=== PATIENT | male | born 1955 | race Hispanic/Latino ===

== ENCOUNTER 2021-03-22 09:25 | Inpatient (IN) | payer BC, MEDICARE ==
[2021-03-20 11:52] LABS: BASOPHILS % (AUTO) 0.8 % (0.0-5.0); EOSINOPHILS % (AUTO) 4.9 % (0.0-8.0); HEMATOCRIT 41.9 % (42-54); LYMPHOCYTES % (AUTO) 19.9 % (21.0-51.0); MEAN CORPUSCULAR HEMOGLOBIN 31.6 pg (27.0-33.0); MEAN CORPUSCULAR HGB CONC 32.7 g/dL (32.0-36.0); MEAN CORPUSCULAR VOLUME 96.8 fL (79-99); NEUTROPHILS % (AUTO) 64.8 % (40.0-77.0); PLATELET COUNT (AUTO) 225 K/uL (130-400); RED BLOOD CELL COUNT(AUTO) 4.33 MIL/uL (4.50-6.20); RED CELL DISTRIBUTION WIDTH 13.7 % (11.0-15.5); WHITE BLOOD COUNT (AUTO) 7.8 K/uL (4.8-10.8)
[2021-03-20 12:04] LABS: INR 0.99 (0.85-1.15); PROTHROMBIN TIME 10.8 SEC (9.6-11.6)
[2021-03-20 12:06] LABS: PARTIAL THROMBOPLASTIN TIME 26.2 SEC (26.3-35.5)
[2021-03-20 12:08] LABS: ALBUMIN 3.4 g/dL (3.5-5.0); BILIRUBIN,TOTAL 0.3 mg/dL (0.2-1.0); CREATININE 0.9 mg/dL (0.5-1.5); POTASSIUM 3.6 mmol/L (3.5-5.1); TOTAL PROTEIN, SERUM 8.3 g/dL (6.0-8.3)
[2021-03-20 12:15] LABS: ABG BASE EXCESS 2.3 mmol/L (-2.0-3.0); ABG HCO3 27.1 mmol/L (21.0-28.0); ABG OXYGEN SATURATION 94.6 % (95.0-99.0); ABG PCO2 43 mmHg (35-48)
[2021-03-20 12:17] LABS: HEMOGLOBIN A1C 6.3 % (4.0-6.0)
[2021-03-21 11:36] VITALS: BP 144/76
[~2021-03-22] VITALS: Ht 162.6 cm; Wt 87.9 kg
[~2021-03-22 09:25] MED LIST: ATOR10 PO; CEFAZOLIN SODIUM 1 GM VIAL IVP SCH; DUTA0.5C37 PO; TAMS-1 PO
[2021-03-24] VITALS (18 sets, daily range): BP systolic 95–152; BP diastolic 42–83
[2021-03-24] MEDS ORDERED: METOPROLOL TARTRATE 25 MG TAB ONE (11:25)
[2021-03-24] MEDS ORDERED: 0.9%NACL 1000ML 1,000 ML IV ONE (11:39)
[2021-03-24] MEDS ORDERED: AMINOCAPROIC ACID 5,000MG VIAL 15,000 MG in 0.9% NACL 500ML IV.SOLN 420 ML IV PRN (12:00)
[2021-03-24] MEDS ORDERED: EPINEPHRINE PF 1MG AMP 10 MG in 0.9% NACL 250ML 240 ML IV PRN (12:00)
[2021-03-24] MEDS ORDERED: NOREPINEPHRINE BITARTRATE 8 MG in DEXTROSE 5%-WATER 250 ML IV PRN (12:00)
[2021-03-24] MEDS ORDERED: METOPROLOL TARTRATE 25 MG TAB PO SCH (12:00)
[2021-03-24] MEDS: CEFAZOLIN SODIUM 1 GM VIAL IVP SCH ×2 (12:01→13:00)
[2021-03-24] MEDS ORDERED: ESMOLOL HCL 10 MG/ML 10 ML VIAL ONE (12:06)
[2021-03-24] MEDS ORDERED: EPINEPHRINE PF 1MG AMP ONE (12:06)
[2021-03-24] MEDS ORDERED: SODIUM BICARB 50MEQ 50ML VIAL 100 ML ONE (12:06)
[2021-03-24] MEDS ORDERED: PROTAMINE SULFATE 10 MG/ML 25ML VIAL IV ONE (12:06)
[2021-03-24] MEDS ORDERED: LIDOCAINE PF 100MG/5ML (2%) SYRINGE 5ML ONE (12:06)
[2021-03-24] MEDS ORDERED: HEPARIN 10,000 UNIT/10ML (1,000 UNIT/ML) VIAL ONE ×2 (12:06→13:14)
[2021-03-24] MEDS ORDERED: AMINOCAPROIC ACID 5,000MG VIAL ONE (12:06)
[2021-03-24] MEDS ORDERED: FENTANYL CITRATE PF 50 MCG/1 ML 20ML VIAL IJ ONE (12:06)
[2021-03-24] MEDS ORDERED: NOREPINEPHRINE BITARTRATE 1 MG/1 ML ML IV ONE (12:06)
[2021-03-24] MEDS ORDERED: ROCURONIUM 10MG/1ML SYR 10 MG/ML ML ONE (12:07)
[2021-03-24] MEDS ORDERED: PROPOFOL 10 MG/ML 20ML VIAL IV ONE (12:07)
[2021-03-24] MEDS ORDERED: MIDAZOLAM HCL 1 MG/ML 2ML VIAL ONE ×2 (12:07→12:10)
[2021-03-24] MEDS ORDERED: NITROGLYCERIN 50MG/D5W 250ML 1 BOT ONE (12:19)
[2021-03-24] MEDS ORDERED: KETAMINE HCL 100 MG/ML 5ML VIAL IJ ONE (12:57)
[2021-03-24] MEDS ORDERED: OCTYL 2-CYANOACRYLATE 1 EACH TP ONE (13:39)
[2021-03-24] MEDS ORDERED: PAPAVERINE HCL 30 MG/ML 2ML VIAL ONE (13:39)
[2021-03-24] MEDS ORDERED: CEFAZOLIN SODIUM 1 GM VIAL ONE (13:39)
[2021-03-24 13:43] LABS: ABG BASE EXCESS -1.8 mmol/L (-2.0-3.0); ABG OXYGEN SATURATION 99.6 % (95.0-99.0); ABG PCO2 34 mmHg (35-48)
[2021-03-24] MEDS ORDERED: SODIUM BICARB 50MEQ 50ML VIAL 200 ML ONE (13:47)
[2021-03-24] MEDS ORDERED: SOLU-MEDROL 125MG VIAL ONE (15:36)
[2021-03-24] MEDS ORDERED: ROCURONIUM BROMIDE 10MG/1ML 5ML VL ONE (15:39)
[2021-03-24 15:56] LABS: ABG BASE EXCESS -2.8 mmol/L (-2.0-3.0); ABG HCO3 21.3 mmol/L (21.0-28.0); ABG OXYGEN SATURATION 99.4 % (95.0-99.0); ABG PCO2 35 mmHg (35-48)
[2021-03-24] MEDS ORDERED: POTASSIUM CHLORIDE 20MEQ/100ML 100 ML IV ONE (16:05)
[2021-03-24] MEDS ORDERED: ALBUMIN (HUMAN) 5% 250 ML IV ONE ×2 (16:23→16:37)
[2021-03-24] MEDS ORDERED: GLUCAGON 1MG KIT 1 MG ML IM PRN (16:30)
[2021-03-24] MEDS ORDERED: 0.9%NACL 10ML VIAL IVP PRN (16:30)
[2021-03-24] MEDS ORDERED: ACETAMINOPHEN 325 MG TAB PO PRN (16:30)
[2021-03-24] MEDS ORDERED: EPINEPHRINE PF 1MG AMP 10 MG in DEXTROSE 5%-WATER 250 ML IV PRN (16:30)
[2021-03-24] MEDS ORDERED: 0.9%NACL 1000ML 1,000 ML IV SCH (16:30)
[2021-03-24] MEDS ORDERED: MORPHINE 2 MG SYG IV PRN ×2 (16:30→17:30)
[2021-03-24] MEDS ORDERED: INSULIN REGULAR, HUMAN 3ML 100 UNIT in 0.9%NACL 100ML 99 ML IV SCH ×2 (16:30)
[2021-03-24] MEDS ORDERED: NITROGLYCERIN 50MG/D5W 250ML 250 BOT IV SCH (16:30)
[2021-03-24] MEDS ORDERED: ALBUMIN (HUMAN) 5% 250 ML IV PRN (16:30)
[2021-03-24] MEDS ORDERED: DEXTROSE 50%-WATER 50 ML DISP.SYRIN IV PRN (16:30)
[2021-03-24] MEDS ORDERED: TRAMADOL HCL 50 MG TABLET PO PRN ×2 (16:30)
[2021-03-24] MEDS ORDERED: ACETAMINOPHEN 650 MG SUPPOSITORY RC PRN (16:30)
[2021-03-24] MEDS ORDERED: POTASSIUM PHOS 15 mMOL+NS250ML IV PRN (16:30)
[2021-03-24] MEDS ORDERED: AMINOCAPROIC ACID 5,000MG VIAL 15,000 MG in 0.9% NACL 250ML 250 ML IV SCH (16:30)
[2021-03-24] MEDS ORDERED: CALCIUM GLUC 1GM 1 GM in 0.9%NACL 50ML 50 ML IV PRN (16:30)
[2021-03-24] MEDS ORDERED: MAGNESIUM 2GM PREMIX 50ML 50 ML IV PRN (16:30)
[2021-03-24] MEDS ORDERED: PROPOFOL 1000 MG/100 ML 100 ML IV PRN (16:30)
[2021-03-24] MEDS ORDERED: NOREPINEPHRIN 4MG/NS 250ML 250 ML IV PRN (16:30)
[2021-03-24] MEDS ORDERED: ONDANSETRON 4MG INJ IV PRN (16:30)
[2021-03-24 16:33] LABS: ABG BASE EXCESS -6.7 mmol/L (-2.0-3.0); ABG HCO3 19.3 mmol/L (21.0-28.0); ABG OXYGEN SATURATION 93.6 % (95.0-99.0); ABG PCO2 40 mmHg (35-48)
[2021-03-24] MEDS ORDERED: SODIUM BICARB 50MEQ 50ML VIAL 50 ML ONE (16:37)
[2021-03-24] MEDS ORDERED: EPHEDRINE SULFATE 50 MG/ML AMPULE ONE (16:55)
[2021-03-24] MEDS ORDERED: ASPIRIN 81MG CHEW TAB NG ONE (17:00)
[2021-03-24 17:26] LABS: ABG BASE EXCESS -1.7 mmol/L (-2.0-3.0); ABG HCO3 23.4 mmol/L (21.0-28.0); ABG OXYGEN SATURATION 89.9 % (95.0-99.0); ABG PCO2 41 mmHg (35-48)
[2021-03-24 17:39] LABS: ABG OXYGEN SATURATION 71.9 % (95.0-99.0); BASE EXCESS,VENOUS BLOOD GAS -2.7 (-2.0-3.0); HCO3,VENOUS BLOOD GAS 23.8 (21.0-28.0); PCO2,VENOUS BLOOD GAS 48 (35-48); PH,VENOUS BLOOD GAS 7.309 (7.350-7.450)
[2021-03-24 17:39] LABS: HEMATOCRIT 31.8 % (42-54); MEAN CORPUSCULAR HEMOGLOBIN 31.9 pg (27.0-33.0); MEAN CORPUSCULAR HGB CONC 33.3 g/dL (32.0-36.0); MEAN CORPUSCULAR VOLUME 95.8 fL (79-99); RED BLOOD CELL COUNT(AUTO) 3.32 MIL/uL (4.50-6.20); RED CELL DISTRIBUTION WIDTH 13.6 % (11.0-15.5); WHITE BLOOD COUNT (AUTO) 21.1 K/uL (4.8-10.8)
[2021-03-24 17:51] LABS: INR 1.19 (0.85-1.15); PROTHROMBIN TIME 12.8 SEC (9.6-11.6)
[2021-03-24] MEDS: POTASSIUM CHLORIDE 20MEQ/100ML 100 ML IV PRN ×4 (17:51→22:25)
[2021-03-24] MEDS: SODIUM BICARB 50MEQ 50ML VIAL IV PRN ×3 (17:51→20:08)
[2021-03-24 17:52] LABS: CREATININE 1.2 mg/dL (0.5-1.5); MAGNESIUM 1.5 mg/dL (1.80-2.40); PARTIAL THROMBOPLASTIN TIME 21.9 SEC (26.3-35.5); PHOSPHORUS 2.3 mg/dL (2.5-4.9)
[2021-03-24] MEDS: 0.9%NACL 50ML IV SCH ×3 (17:52→22:24)
[2021-03-24] MEDS: CALCIUM GLUC 1GM/10ML VIAL IVPB SCH ×3 (17:52→22:24)
[2021-03-24 18:08] LABS: POTASSIUM 2.5 mmol/L (3.5-5.1)
[2021-03-24 18:44] LABS: ABG OXYGEN SATURATION 99.1 % (95.0-99.0); ABG PCO2 41 mmHg (35-48)
[2021-03-24 19:57] LABS: ABG BASE EXCESS -1.7 mmol/L (-2.0-3.0); ABG HCO3 23.2 mmol/L (21.0-28.0); ABG OXYGEN SATURATION 98.8 % (95.0-99.0); ABG PCO2 40 mmHg (35-48)
[2021-03-24] MEDS: FAMOTIDINE 20MG VIAL IV SCH (20:08)
[2021-03-24] MEDS: (Dutasteride 0.5 MG) PO SCH (20:11)
[2021-03-24] MEDS: TAMSULOSIN HCL 0.4 MG CAP.ER.24H PO SCH (20:11)
[2021-03-24] MEDS: CEFAZOLIN SODIUM 1 GM VIAL IV SCH (20:36)
[2021-03-24 20:49] LABS: ABG BASE EXCESS 0.8 mmol/L (-2.0-3.0); ABG HCO3 25.7 mmol/L (21.0-28.0); ABG OXYGEN SATURATION 98.3 % (95.0-99.0); ABG PCO2 42 mmHg (35-48)
[2021-03-24] MEDS ORDERED: ATORVASTATIN 20 MG TABLET PO SCH (21:00)
[2021-03-24 22:05] LABS: ABG BASE EXCESS -0.2 mmol/L (-2.0-3.0); ABG OXYGEN SATURATION 98.6 % (95.0-99.0); ABG PCO2 38 mmHg (35-48)
[2021-03-24] MEDS: NOREPINEPHRIN 8MG/250ML NS PMX 250 ML IV PRN (22:59)
[2021-03-24 23:05] LABS: ABG BASE EXCESS -1.3 mmol/L (-2.0-3.0); ABG OXYGEN SATURATION 98.2 % (95.0-99.0); ABG PCO2 37 mmHg (35-48)
[2021-03-25] VITALS (25 sets, daily range): BP systolic 23–133; BP diastolic 50–79
[2021-03-25 00:11] LABS: ABG BASE EXCESS -1.6 mmol/L (-2.0-3.0); ABG HCO3 22.5 mmol/L (21.0-28.0); ABG OXYGEN SATURATION 97.9 % (95.0-99.0); ABG PCO2 36 mmHg (35-48)
[2021-03-25] MEDS: CALCIUM GLUC 1GM/10ML VIAL IVPB SCH ×4 (00:30→19:57)
[2021-03-25] MEDS: 0.9%NACL 50ML IV SCH ×2 (00:30→03:14)
[2021-03-25 02:40] LABS: ABG BASE EXCESS -1.5 mmol/L (-2.0-3.0); ABG HCO3 22.9 mmol/L (21.0-28.0); ABG OXYGEN SATURATION 95.7 % (95.0-99.0); ABG PCO2 38 mmHg (35-48)
[2021-03-25] MEDS: SODIUM BICARB 50MEQ 50ML VIAL IV PRN (03:14)
[2021-03-25 04:07] LABS: ABG HCO3 25.8 mmol/L (21.0-28.0); ABG OXYGEN SATURATION 94.2 % (95.0-99.0); ABG PCO2 38 mmHg (35-48)
[2021-03-25 04:32] LABS: HEMATOCRIT 32.9 % (42-54); MEAN CORPUSCULAR HEMOGLOBIN 31.4 pg (27.0-33.0); MEAN CORPUSCULAR HGB CONC 33.7 g/dL (32.0-36.0); MEAN CORPUSCULAR VOLUME 93.2 fL (79-99); RED BLOOD CELL COUNT(AUTO) 3.53 MIL/uL (4.50-6.20); WHITE BLOOD COUNT (AUTO) 15.6 K/uL (4.8-10.8)
[2021-03-25] MEDS: CEFAZOLIN SODIUM 1 GM VIAL IV SCH ×2 (04:41→13:53)
[2021-03-25 04:43] LABS: INR 1.04 (0.85-1.15); PROTHROMBIN TIME 11.3 SEC (9.6-11.6)
[2021-03-25 04:44] LABS: PHOSPHORUS 4.6 mg/dL (2.5-4.9); POTASSIUM 4.4 mmol/L (3.5-5.1)
[2021-03-25 04:45] LABS: PARTIAL THROMBOPLASTIN TIME 23.9 SEC (26.3-35.5)
[2021-03-25] MEDS ORDERED: 0.9%NACL 100ML 100 ML ONE (08:06)
[2021-03-25] MEDS: FAMOTIDINE 20MG VIAL IV SCH ×2 (08:12→20:39)
[2021-03-25] MEDS: ASPIRIN 81 MG EC TAB PO SCH (08:12)
[2021-03-25] MEDS ORDERED: HYDROCODONE/ACETAMINOPHEN 5/325 MG TAB PO PRN (09:30)
[2021-03-25] MEDS: HYDROCODONE/ACETAMINOPHEN 5/325 MG TAB PO PRN ×4 (09:48→22:28)
[2021-03-25] MEDS ORDERED: IPRATROPIUM 0.5 MG/2.5 ML INH IH ONE ×2 (18:44→19:55)
[2021-03-25 19:25] LABS: ABG BASE EXCESS 1.1 mmol/L (-2.0-3.0); ABG OXYGEN SATURATION 85.9 % (95.0-99.0); ABG PCO2 37 mmHg (35-48)
[2021-03-25] MEDS: NOREPINEPHRIN 8MG/250ML NS PMX 250 ML IV PRN (19:25)
[2021-03-25] MEDS ORDERED: ALBUMIN (HUMAN) 5% 250 ML IV ONE (19:29)
[2021-03-25] MEDS ORDERED: PHARMACY COMMUNICATION MISC SCH (19:30)
[2021-03-25] MEDS ORDERED: 0.9%NACL 100ML 200 ML ONE (19:54)
[2021-03-25] MEDS: ATORVASTATIN 40 MG TABLET PO SCH (20:39)
[2021-03-25] MEDS: (Dutasteride 0.5 MG) PO SCH (20:39)
[2021-03-25] MEDS: TAMSULOSIN HCL 0.4 MG CAP.ER.24H PO SCH (20:39)
[2021-03-25] MEDS: 0.9% NACL 500ML IV.SOLN 500 ML IV SCH (21:15)
[2021-03-26] VITALS (26 sets, daily range): BP systolic 87–139; BP diastolic 48–105
[2021-03-26 04:44] LABS: HEMATOCRIT 31.9 % (42-54); MEAN CORPUSCULAR HEMOGLOBIN 31.7 pg (27.0-33.0); MEAN CORPUSCULAR HGB CONC 32.6 g/dL (32.0-36.0); MEAN CORPUSCULAR VOLUME 97.3 fL (79-99); RED BLOOD CELL COUNT(AUTO) 3.28 MIL/uL (4.50-6.20); RED CELL DISTRIBUTION WIDTH 14.2 % (11.0-15.5); WHITE BLOOD COUNT (AUTO) 13.6 K/uL (4.8-10.8)
[2021-03-26] MEDS: CALCIUM GLUC 1GM/10ML VIAL IVPB SCH (04:54)
[2021-03-26 04:59] LABS: POTASSIUM 4.4 mmol/L (3.5-5.1)
[2021-03-26 08:37] LABS: ABG BASE EXCESS -0.1 mmol/L (-2.0-3.0); ABG OXYGEN SATURATION 95.7 % (95.0-99.0); ABG PCO2 32 mmHg (35-48)
[2021-03-26] MEDS: ASPIRIN 81 MG EC TAB PO SCH (08:58)
[2021-03-26] MEDS ORDERED: AMIODARONE 900MG VIAL 360 MG in DEXTROSE 5%-WATER 200 ML IV SCH (09:30)
[2021-03-26] MEDS ORDERED: AMIODARONE 900MG VIAL 150 MG in DEXTROSE 5%-WATER 100 ML IV SCH (09:30)
[2021-03-26] MEDS: FAMOTIDINE 20MG VIAL IV SCH ×2 (09:32→19:39)
[2021-03-26] MEDS: FUROSEMIDE 20MG VIAL IV SCH ×2 (09:50→19:39)
[2021-03-26] MEDS: 0.9% NACL 500ML IV.SOLN 500 ML IV SCH (15:19)
[2021-03-26] MEDS: AMIODARONE 900MG VIAL 540 MG in DEXTROSE 5%-WATER 300 ML IV SCH (16:01)
[2021-03-26] MEDS: HYDROCODONE/ACETAMINOPHEN 5/325 MG TAB PO PRN (19:09)
[2021-03-26] MEDS: TAMSULOSIN HCL 0.4 MG CAP.ER.24H PO SCH (19:39)
[2021-03-26] MEDS: ATORVASTATIN 40 MG TABLET PO SCH (19:39)
[2021-03-26] MEDS: (Dutasteride 0.5 MG) PO SCH (19:39)
[2021-03-26] MEDS: ENOXAPARIN SODIUM 30 MG/0.3 ML SQ SCH (20:14)
[2021-03-26] MEDS ORDERED: IPRATROPIUM 0.5 MG/2.5 ML INH IH ONE (22:45)
[2021-03-26] MEDS: IPRATROPIUM 0.5 MG/2.5 ML INH IH SCH (23:09)
[2021-03-27] VITALS (27 sets, daily range): BP systolic 89–144; BP diastolic 54–99
[2021-03-27] MEDS: AMIODARONE 900MG VIAL 540 MG in DEXTROSE 5%-WATER 300 ML IV SCH ×2 (04:07→09:52)
[2021-03-27 04:21] LABS: ABG BASE EXCESS -0.3 mmol/L (-2.0-3.0); ABG HCO3 23.5 mmol/L (21.0-28.0); ABG OXYGEN SATURATION 96.3 % (95.0-99.0); ABG PCO2 35 mmHg (35-48)
[2021-03-27] MEDS ORDERED: 0.9%NACL 100ML 100 ML ONE (04:25)
[2021-03-27] MEDS ORDERED: PHARMACY COMMUNICATION MISC SCH (04:30)
[2021-03-27 04:36] LABS: HEMATOCRIT 32.1 % (42-54); MEAN CORPUSCULAR HEMOGLOBIN 31.7 pg (27.0-33.0); MEAN CORPUSCULAR HGB CONC 33.3 g/dL (32.0-36.0); RED BLOOD CELL COUNT(AUTO) 3.38 MIL/uL (4.50-6.20); RED CELL DISTRIBUTION WIDTH 14.3 % (11.0-15.5); WHITE BLOOD COUNT (AUTO) 14.5 K/uL (4.8-10.8)
[2021-03-27 04:53] LABS: CREATININE 1.1 mg/dL (0.5-1.5); MAGNESIUM 2.3 mg/dL (1.80-2.40); POTASSIUM 3.9 mmol/L (3.5-5.1)
[2021-03-27] MEDS: CALCIUM GLUC 1GM/10ML VIAL IVPB SCH (05:11)
[2021-03-27] MEDS: 0.9%NACL 50ML IV SCH (05:12)
[2021-03-27] MEDS: IPRATROPIUM 0.5 MG/2.5 ML INH IH SCH ×4 (06:15→23:18)
[2021-03-27] MEDS: FUROSEMIDE 20MG VIAL IV SCH ×2 (08:40→21:31)
[2021-03-27] MEDS: FAMOTIDINE 20MG VIAL IV SCH ×2 (08:43→20:49)
[2021-03-27] MEDS: ASPIRIN 81 MG EC TAB PO SCH (08:46)
[2021-03-27] MEDS: ENOXAPARIN SODIUM 30 MG/0.3 ML SQ SCH (08:47)
[2021-03-27] MEDS: POTASSIUM CHLORIDE 20MEQ/100ML 100 ML IV PRN (16:27)
[2021-03-27] MEDS ORDERED: LACTULOSE 20 GM/30 ML UDCUP PO PRN (18:30)
[2021-03-27] MEDS ORDERED: DOCUSATE SODIUM 100 MG CAP PO PRN (18:30)
[2021-03-27] MEDS ORDERED: SENNOSIDES 8.6 MG TABLET PO PRN (18:30)
[2021-03-27] MEDS ORDERED: AMIODARONE 900MG VIAL 450 MG in DEXTROSE 5%-WATER 250 ML IV SCH (20:30)
[2021-03-27] MEDS: ATORVASTATIN 40 MG TABLET PO SCH (20:49)
[2021-03-27] MEDS: (Dutasteride 0.5 MG) PO SCH (20:49)
[2021-03-27] MEDS: TAMSULOSIN HCL 0.4 MG CAP.ER.24H PO SCH (20:49)
[2021-03-27] MEDS: METOPROLOL TARTRATE 25 MG TAB PO SCH (20:49)
[2021-03-28] VITALS (20 sets, daily range): BP systolic 87–134; BP diastolic 57–86
[2021-03-28 04:58] LABS: HEMATOCRIT 31.1 % (42-54); MEAN CORPUSCULAR HEMOGLOBIN 31.6 pg (27.0-33.0); MEAN CORPUSCULAR HGB CONC 33.4 g/dL (32.0-36.0); MEAN CORPUSCULAR VOLUME 94.5 fL (79-99); RED BLOOD CELL COUNT(AUTO) 3.29 MIL/uL (4.50-6.20); RED CELL DISTRIBUTION WIDTH 14.3 % (11.0-15.5); WHITE BLOOD COUNT (AUTO) 11.3 K/uL (4.8-10.8)
[2021-03-28 05:07] LABS: CREATININE 0.9 mg/dL (0.5-1.5); MAGNESIUM 2.2 mg/dL (1.80-2.40); POTASSIUM 3.6 mmol/L (3.5-5.1)
[2021-03-28] MEDS ORDERED: POTASSIUM CHLORIDE 10% ELIXIR 20 MEQ/15 ML UDCUP ONE (06:12)
[2021-03-28] MEDS: IPRATROPIUM 0.5 MG/2.5 ML INH IH SCH ×4 (07:21→23:26)
[2021-03-28] MEDS: AMIODARONE 200 MG TABLET PO SCH ×2 (08:03→21:23)
[2021-03-28] MEDS: FAMOTIDINE 20MG VIAL IV SCH (08:03)
[2021-03-28] MEDS: POTASSIUM CHLORIDE 10% ELIXIR 20 MEQ/15 ML UDCUP PO PRN (08:04)
[2021-03-28] MEDS: FUROSEMIDE 20MG VIAL IV SCH ×2 (08:04→21:24)
[2021-03-28] MEDS: ENOXAPARIN SODIUM 30 MG/0.3 ML SQ SCH (08:05)
[2021-03-28] MEDS: ASPIRIN 81 MG EC TAB PO SCH (08:06)
[2021-03-28] MEDS: POTASSIUM CHLORIDE 20MEQ/100ML 100 ML IV PRN (08:06)
[2021-03-28] MEDS: METOPROLOL TARTRATE 25 MG TAB PO SCH ×2 (08:06→21:23)
[2021-03-28] MEDS ORDERED: AMIODARONE 200 MG TABLET PO SCH (09:00)
[2021-03-28] MEDS ORDERED: TRAMADOL HCL 50 MG TABLET PO PRN ×2 (16:00)
[2021-03-28] MEDS: TAMSULOSIN HCL 0.4 MG CAP.ER.24H PO SCH (21:21)
[2021-03-28] MEDS: (Dutasteride 0.5 MG) PO SCH (21:22)
[2021-03-28] MEDS: ATORVASTATIN 40 MG TABLET PO SCH (21:22)
[2021-03-28] MEDS: FAMOTIDINE 20MG TAB PO SCH (21:24)
[2021-03-28] MEDS ORDERED: GUAIFENESIN-DM 200/20 MG 10 ML PO PRN (22:00)
[2021-03-28] MEDS: BENZONATATE 100 MG CAPSULE PO PRN (22:16)
[2021-03-29] VITALS (10 sets, daily range): BP systolic 97–130; BP diastolic 60–108
[2021-03-29 04:21] LABS: BASOPHILS % (AUTO) 0.3 % (0.0-5.0); EOSINOPHILS % (AUTO) 1.4 % (0.0-8.0); HEMATOCRIT 30.2 % (42-54); LYMPHOCYTES % (AUTO) 11.1 % (21.0-51.0); MEAN CORPUSCULAR HEMOGLOBIN 31.3 pg (27.0-33.0); MEAN CORPUSCULAR HGB CONC 33.4 g/dL (32.0-36.0); MEAN CORPUSCULAR VOLUME 93.5 fL (79-99); MONOCYTES % (AUTO) 13.2 % (3.0-13.0); NEUTROPHILS % (AUTO) 73.1 % (40.0-77.0); PLATELET COUNT (AUTO) 205 K/uL (130-400); RED BLOOD CELL COUNT(AUTO) 3.23 MIL/uL (4.50-6.20); RED CELL DISTRIBUTION WIDTH 14.1 % (11.0-15.5); WHITE BLOOD COUNT (AUTO) 9.8 K/uL (4.8-10.8)
[2021-03-29 04:34] LABS: POTASSIUM 3.6 mmol/L (3.5-5.1)
[2021-03-29] MEDS: POTASSIUM CHLORIDE 10% ELIXIR 20 MEQ/15 ML UDCUP PO PRN ×3 (05:16→17:33)
[2021-03-29] MEDS: IPRATROPIUM 0.5 MG/2.5 ML INH IH SCH ×4 (06:33→23:18)
[2021-03-29] MEDS: BENZONATATE 100 MG CAPSULE PO PRN (07:28)
[2021-03-29] MEDS: ENOXAPARIN SODIUM 30 MG/0.3 ML SQ SCH (08:41)
[2021-03-29] MEDS: FAMOTIDINE 20MG TAB PO SCH ×2 (08:41→20:51)
[2021-03-29] MEDS: AMIODARONE 200 MG TABLET PO SCH ×2 (08:42→20:51)
[2021-03-29] MEDS: ASPIRIN 81 MG EC TAB PO SCH (08:42)
[2021-03-29] MEDS: FUROSEMIDE 20 MG TABLET PO SCH ×2 (08:42→17:30)
[2021-03-29] MEDS: METOPROLOL TARTRATE 25 MG TAB PO SCH ×2 (08:42→20:51)
[2021-03-29] MEDS: TAMSULOSIN HCL 0.4 MG CAP.ER.24H PO SCH (20:51)
[2021-03-29] MEDS: ATORVASTATIN 40 MG TABLET PO SCH (20:51)
[2021-03-29] MEDS: (Dutasteride 0.5 MG) PO SCH (20:55)
[2021-03-30] VITALS (9 sets, daily range): BP systolic 90–111; BP diastolic 57–100
[2021-03-30 06:38] LABS: CREATININE 0.8 mg/dL (0.5-1.5); POTASSIUM 3.5 mmol/L (3.5-5.1)
[2021-03-30] MEDS: FUROSEMIDE 20 MG TABLET PO SCH ×2 (08:26→16:06)
[2021-03-30] MEDS: METOPROLOL TARTRATE 25 MG TAB PO SCH (08:26)
[2021-03-30] MEDS: FAMOTIDINE 20MG TAB PO SCH (08:26)
[2021-03-30] MEDS: AMIODARONE 200 MG TABLET PO SCH (08:26)
[2021-03-30] MEDS: ASPIRIN 81 MG EC TAB PO SCH (08:26)
[2021-03-30] MEDS: ENOXAPARIN SODIUM 30 MG/0.3 ML SQ SCH (08:27)
[2021-03-30] MEDS: IPRATROPIUM 0.5 MG/2.5 ML INH IH SCH (13:28)
[2021-03-30] MEDS ORDERED: FURO20TA6 PO (14:55)
[2021-03-30] MEDS ORDERED: AMIO200T44 PO (14:55)
[2021-03-30] MEDS ORDERED: METO25 PO (14:55)
[2021-03-30] MEDS ORDERED: ATOR40TA69 PO (14:55)
[2021-03-30] MEDS ORDERED: AEC81 PO (14:55)
== END 2021-03-30 18:00 | disposition home health service (06) | DRG 235 ==
LOC: EDSTATUS 09:41 → EDHIP 03-24 11:07 → 2CV 03-24 13:58 → 2CH 03-25 18:55 → 2DH 03-28 17:44
PROVIDERS: ADMIT Thoracic Surgery (Cardiothoracic Vascular Surgery); ATTEND Thoracic Surgery (Cardiothoracic Vascular Surgery)
PROC: 06BP4ZZ Excision of Right Saphenous Vein, Percutaneous Endoscopic Approach (ICD-10-PCS; 2021-03-24)
PROC: 02100Z9 Bypass Coronary Artery, One Artery from Left Internal Mammary, Open Approach (ICD-10-PCS; principal; 2021-03-24 12:00)
PROC: 021109W Bypass Coronary Artery, Two Arteries from Aorta with Autologous Venous Tissue, Open Approach (ICD-10-PCS; 2021-03-24 12:00)
PROC: 06BQ4ZZ Excision of Left Saphenous Vein, Percutaneous Endoscopic Approach (ICD-10-PCS; 2021-03-24 12:00)
PROC: 5A09357 Assistance with Respiratory Ventilation, Less than 24 Consecutive Hours, Continuous Positive Airway Pressure (ICD-10-PCS; 2021-03-25)
PROC: 5A09357 Assistance with Respiratory Ventilation, Less than 24 Consecutive Hours, Continuous Positive Airway Pressure (ICD-10-PCS; 2021-03-26)
PROC: 5A09357 Assistance with Respiratory Ventilation, Less than 24 Consecutive Hours, Continuous Positive Airway Pressure (ICD-10-PCS; 2021-03-27)
PROC: 5A09357 Assistance with Respiratory Ventilation, Less than 24 Consecutive Hours, Continuous Positive Airway Pressure (ICD-10-PCS; 2021-03-28)
PROC: 5A09357 Assistance with Respiratory Ventilation, Less than 24 Consecutive Hours, Continuous Positive Airway Pressure (ICD-10-PCS; 2021-03-29)
PROC: 5A09357 Assistance with Respiratory Ventilation, Less than 24 Consecutive Hours, Continuous Positive Airway Pressure (ICD-10-PCS; 2021-03-30)
DX: I25.10 Atherosclerotic heart disease of native coronary artery without angina pectoris (principal); J18.9 Pneumonia, unspecified organism; J95.1 Acute pulmonary insufficiency following thoracic surgery; E78.00 Pure hypercholesterolemia, unspecified; Z20.822 Contact with and (suspected) exposure to COVID-19; I10 Essential (primary) hypertension; E03.9 Hypothyroidism, unspecified; E78.5 Hyperlipidemia, unspecified; I48.91 Unspecified atrial fibrillation; E87.70 Fluid overload, unspecified; N40.0 Benign prostatic hyperplasia without lower urinary tract symptoms; Z79.82 Long term (current) use of aspirin; Z79.899 Other long term (current) drug therapy; Y83.8 Other surgical procedures as the cause of abnormal reaction of the patient, or of later complication, without mention of misadventure at the time of the procedure; Y92.89 Other specified places as the place of occurrence of the external cause
CPT/HCPCS: 36415; 36600; 71045; 71046; 80048; 80053; 80061; 82330; 82435; 82803; 82947; 82948; 83036; 83605; 83735; 84100; 84132; 84295; 85018; 85025; 85027; 85347; 85610; 85730; 86850; 86900; 86901; 86923; 87635; 93005; 93880; 93970; 94002; 94003; 94010; 94150; 94640; 94660; 94664; 97039; A7048; G0378; J0171; J0282; J0610; J0690; J1644; J1650; J1815; J1940; J2001; J2250; J2440; J2704; J2720; J2930; J3010; J3475; J3480; J3490; J7030; J7040; J7060; J7120; P9045